=== PATIENT | female | born 1945 | race Caucasian/White ===

== ENCOUNTER → 2021-04-25 | Outpatient (CLI) | payer OTHER ==
[~2021-04-25] MED LIST: ALBUTEROL2.5 MG/3 M INH; ASPIR-LOW81 MG PO; CELEBREX 200MG200 MG PO; ELAVIL 10 MG TA10 MG PO; EVISTA60 MG PO; FLUZONE QU60 MCG/015 IM; GABAPENTIN600 MG PO; LIPITOR TAB 1010 MG PO; NEXIUM40 MG PO; NORVASC 5 MG TAB5 MG PO; PERCOCET 10-321 EACH PO; PHENERGAN 25 MG25 M1 PO; PROVENTIL HFA6.7 GM INH; SPIRIVA RESPIMAT4 GM INH; TOPROL XL25 MG PO; TRAZODONE HCL150 MG PO; VITAMIN B12-FO1 EACH PO; VITAMIN D250000 UNIT PO; VITAMIN D35000 UNI1 PO; ZANAFLEX4 MG PO
== END ==
LOC: OPSV 04-19 12:00
DX: M81.0 Age-related osteoporosis without current pathological fracture (principal)
CPT/HCPCS: 96372

== ENCOUNTER → 2021-10-23 | Outpatient (CLI) | payer OTHER ==
[~2021-10-23] VITALS: Ht 165.1 cm; Wt 47.2 kg
== END ==
LOC: OPSV 14:54
DX: M81.0 Age-related osteoporosis without current pathological fracture (principal)
CPT/HCPCS: 96372

== ENCOUNTER → 2022-03-17 | Outpatient (CLI) | payer OTHER | LOC: HEART 5 14:18 | DX: J44.9 Chronic obstructive pulmonary disease, unspecified (principal); R94.2 Abnormal results of pulmonary function studies | CPT/HCPCS: 94060; 94729 ==

== ENCOUNTER → 2022-04-07 | Outpatient (CLI) | payer OTHER | LOC: KOH-I 04-02 10:30 | DX: R91.8 Other nonspecific abnormal finding of lung field (principal) | CPT/HCPCS: 71250 ==

== ENCOUNTER → 2022-07-08 | Outpatient (CLI) | payer OTHER | LOC: KOH-I 11:14 | DX: R93.89 Abnormal findings on diagnostic imaging of other specified body structures (principal); R91.1 Solitary pulmonary nodule | CPT/HCPCS: 71250 ==